=== PATIENT | female | born 1980 | race Two or more races ===

== ENCOUNTER 2021-11-17 08:51 | Outpatient (CLI) | payer OTHER | END 2021-11-17 09:02 | disposition home or self-care (01) | LOC: RAD 08:51 | DX: M19.90 Unspecified osteoarthritis, unspecified site (principal) ==

== ENCOUNTER 2021-11-17 10:40 | Outpatient (CLI) | payer OTHER | END 2021-11-17 10:54 | disposition home or self-care (01) | LOC: LAB 10:40 | DX: B34.9 Viral infection, unspecified (principal); E78.5 Hyperlipidemia, unspecified; N39.0 Urinary tract infection, site not specified; E03.8 Other specified hypothyroidism ==